=== PATIENT | male | born 1945 | race Caucasian/White ===

== ENCOUNTER 2017-06-12 13:46 | Emergency (ER) | payer MEDICARE, MEDICAID ==
[~2017-06-12] VITALS: Ht 172.7 cm; Wt 95.3 kg
[~2017-06-12 13:46] MED LIST: ASPI81TA27 PO; CAR3125T PO; CHOL20007 PO; CLOP75TA41 PO; FURO20TA3 PO; GABA-339 PO; GLIM1TAB2 PO; LEVO25TA6 PO; LEVO500T21 PO; LISI2.5T47 PO; LOPE2CAP PO; NITR0.4S29 SL; TRAZ50TA2 PO
[2017-06-12 14:30] VITALS: BP 148/79
== END 2017-06-12 14:49 | disposition home or self-care (01) ==
LOC: ER 13:46
DX: S60.211A Contusion of right wrist, initial encounter (principal); I10 Essential (primary) hypertension; E11.9 Type 2 diabetes mellitus without complications; E78.5 Hyperlipidemia, unspecified; I25.2 Old myocardial infarction; F17.210 Nicotine dependence, cigarettes, uncomplicated; Z95.1 Presence of aortocoronary bypass graft; Z79.82 Long term (current) use of aspirin; Z88.1 Allergy status to other antibiotic agents; Z79.899 Other long term (current) drug therapy
CPT/HCPCS: 73110